=== PATIENT | female | born 1985 | race Two or more races ===

== ENCOUNTER 2016-11-15 10:31 | Emergency (ER) | payer OTHER ==
--- NOTE | 2016-11-15 11:04 | ER Document Report ---
ED Medical Screen (RME) - General Chief Complaint: Drug Abuse Stated Complaint: PSYCH EVAL Notes: 31 yo female with hx/o cocaine abuse. used cocaine this morning around 0630 wants detox. denies SI/HI. + depression. Tried to voluntary commit herself to [facility] yesterday, but due to lack of insurance, couldnt be admitted. Denies any pain. No other health concerns. Pt admits to using heavy for last 4 months. + THC TRAVEL OUTSIDE OF THE [place] IN LAST 30 DAYS: No - Related Data Allergies/Adverse Reactions: No Known Allergies Allergy (Verified 11/15/16 10:46) Past Medical History - Social History Chew tobacco use (# tins/day): No Frequency of alcohol use: None Drug Abuse: Cocaine Past Surgical History: Reports: Hx Tubal Ligation - Immunizations Hx Diphtheria, Pertussis, Tetanus Vaccination: No Physical Exam - Vital signs Vitals: Temp Pulse Resp BP Pulse Ox 98.1 F 104 H 20 116/98 H 97 11/15/16 10:49 11/15/16 10:49 11/15/16 10:49 11/15/16 10:49 11/15/16 10:49 Course - Vital Signs Vital signs: Temp Pulse Resp BP Pulse Ox 98.1 F 104 H 20 116/98 H 97 11/15/16 10:49 11/15/16 10:49 11/15/16 10:49 11/15/16 10:49 11/15/16 10:49
[2016-11-15 11:33] LABS: ABSOLUTE BASOPHILS # (AUTO) 0.1 10^3/uL (0.0-0.2); ABSOLUTE EOSINOPHILS # (AUTO) 0.4 10^3/uL (0.0-0.6); ABSOLUTE LYMPHOCYTES (AUTO) 2.2 10^3/uL (0.5-4.7); ABSOLUTE MONOCYTES (AUTO) 0.9 10^3/uL (0.1-1.4); ABSOLUTE NEUT (AUTO) 5.6 10^3/uL (1.7-8.2); BASOPHILS % (AUTO) 0.9 % (0-2); EOSINOPHILS % (AUTO) 4.4 % (0-6); HEMATOCRIT 43.2 % (36.0-47.0); HEMOGLOBIN 14.8 g/dL (12.0-15.5); HGB HCT DIFFERENCE 1.2; LYMPHOCYTES % (AUTO) 24.1 % (13-45); MEAN CORPUSCULAR HEMOGLOBIN 29.6 pg (27.0-33.4); MEAN CORPUSCULAR HGB CONC 34.3 g/dL (32.0-36.0); MEAN CORPUSCULAR VOLUME 86 fl (80-97); MONOCYTES % (AUTO) 10.2 % (3-13); RED BLOOD COUNT 5.01 10^6/uL (3.72-5.28); RED CELL DISTRIBUTION WIDTH 13.2 % (11.5-14.0); SEGMENTED NEUTROPHILS % (AUTO) 60.4 % (42-78); WHITE BLOOD COUNT 9.3 10^3/uL (4.0-10.5)
[2016-11-15 11:39] LABS: APPEARANCE,URINE SLIGHTLY-CLOUDY; BILIRUBIN,URINE NEGATIVE (NEGATIVE); GLUCOSE, URINE NEGATIVE (NEGATIVE); KETONES,URINE NEGATIVE (NEGATIVE); LEUKOCYTE ESTERASE,URINE NEGATIVE (NEGATIVE); NITRITE,URINE NEGATIVE (NEGATIVE); PROTEIN,URINE NEGATIVE (NEGATIVE); URINE SPECIFIC GRAVITY 1.026
[2016-11-15 11:54] LABS: URINE BARBITURATES SCREEN NEGATIVE; URINE METHADONE SCREEN NEGATIVE; URINE PHENCYCLIDINE SCREEN NEGATIVE
[2016-11-15 11:55] LABS: ALANINE AMINOTRANSFERASE 27 U/L (9-52); ALBUMIN 4.7 g/dL (3.5-5.0); ALKALINE PHOSPHATASE 47 U/L (38-126); ANION GAP 13 (5-19); ASPARTATE AMINO TRANSFERASE 18 U/L (14-36); BLOOD UREA NITROGEN 6 mg/dL (7-20); CARBON DIOXIDE 21 mmol/L (22-30); CHLORIDE 107 mmol/L (98-107); GLUCOSE 94 mg/dL (75-110); SODIUM 141.4 mmol/L (137-145); TOTAL PROTEIN 7.5 g/dL (6.3-8.2)
[2016-11-15 11:56] LABS: ALCOHOL < 10 mg/dL (NONE DETECTED)
--- NOTE | 2016-11-15 12:52 | ER Document Report ---
ED Psych Disorder / Suicide - General Chief Complaint: Drug Abuse Stated Complaint: PSYCH EVAL Time seen by provider: 12:51 Mode of Arrival: Ambulatory Information source: Patient Notes: This is a 31-year-old female with a long history of depression who presents to the emergency room depressed, feelings of suicide. The patient states that her symptoms of been worsened by the use of cocaine and possibly heroin. She started using approximately 4 months ago. TRAVEL OUTSIDE OF THE [place] IN LAST 30 DAYS: No - HPI Patient complains to provider of: No: Aggression, Agitated, Bizarre behavior, Hallucinating, Homicidal ideation, Homicidal plan, Homicidal attempt, Overdose, Suicidal ideation, Suicidal plan, Suicidal attempt, Self injury, Other Onset: Last week Onset was: Gradual Quality of pain: No pain Severity: None Pain Level: Denies Suicide Risk Factors: Depressed Overdose of: No: Acetominophen, Alcohol, Anticholinergic, Anti-depressants, Benzodiazepine, Salicylate, Tricyclic Antidepressant, Other Injury to: No: Generalized, Abdomen, Ankle, Back, Breast, Buttocks, Chest, Elbow , Epigastric, Flank, Face, Finger, Foot, Hand, Head, Hip, Knee, Leg, Lower extremity, Mouth, Neck, Pelvic, Penis, Perineum, Rectum, Shoulder, Testicle, Thigh, Throat, Trunk, Upper extremity, Vagina, Wrist Normal mood: No Associated symptoms: Depressed Similar symptoms previously: Yes Recently seen / treated by doctor: No - Related Data Allergies/Adverse Reactions: No Known Allergies Allergy (Verified 11/15/16 10:46) Past Medical History - General Information source: Patient - Social History Smoking Status: Current Every Day Smoker Cigarette use (# per day): Yes - 1 pack per day Chew tobacco use (# tins/day): No Frequency of alcohol use: None Drug Abuse: Cocaine Lives with: Family Family History: Reviewed & Not Pertinent Patient has suicidal ideation: No Patient has homicidal ideation: No - Medical History Medical History: Negative Past Surgical History: Reports: Hx Tubal Ligation - Immunizations Hx Diphtheria, Pertussis, Tetanus Vaccination: No Review of Systems - Review of Systems Constitutional: No symptoms reported EENT: No symptoms reported Cardiovascular: No symptoms reported Respiratory: No symptoms reported Gastrointestinal: No symptoms reported Genitourinary: No symptoms reported Female Genitourinary: No symptoms reported Musculoskeletal: No symptoms reported Skin: No symptoms reported Hematologic/Lymphatic: No symptoms reported Neurological/Psychological: See HPI Physical Exam - Vital signs Vitals: Temp Pulse Resp BP Pulse Ox 98.1 F 104 H 20 116/98 H 97 11/15/16 10:49 11/15/16 10:49 11/15/16 10:49 11/15/16 10:49 11/15/16 10:49 Notes: Physical exam: GENERAL: 31-year-old female, alert and oriented 3, no acute distress HEAD: Atraumatic, normocephalic. EYES: Pupils equal round and reactive to light, extraocular movements intact, sclera anicteric, conjunctiva are normal. ENT: TMs normal, nares patent, oropharynx clear without exudates. Moist mucous membranes. NECK: Normal range of motion, supple without lymphadenopathy or JVD. LUNGS: Breath sounds clear to auscultation bilaterally and equal. No wheezes rales or rhonchi. HEART: Regular rate and rhythm without murmurs, rubs or gallops. ABDOMEN: Soft, nontender, normoactive bowel sounds. No guarding, no rebound. No masses appreciated. EXTREMITIES: Normal range of motion, no pitting or edema. No clubbing or cyanosis. NEUROLOGICAL: Cranial nerves II through XII grossly intact. Normal speech, normal gait. PSYCH: Depressed, affect blunted SKIN: Warm, Dry, normal turgor, no rashes or lesions noted. Course - Re-evaluation Re-evalutation: 11/15/16 16:10 Patient seen and evaluated by psychiatry. - Vital Signs Vital signs: Temp Pulse Resp BP Pulse Ox 98.7 F 95 16 115/67 99 11/15/16 15:26 11/15/16 15:26 11/15/16 15:26 11/15/16 15:26 11/15/16 15:26 - Laboratory Result Diagrams: 11/15/16 11:10 11/15/16 11:10 Laboratory results interpreted by me: 11/15/16 11/15/16 11:10 11:15 Carbon Dioxide 21 L BUN 6 L Urine Urobilinogen 2.0 H Salicylates < 1.0 L Acetaminophen < 10 L - EKG Interpretation by Ne Rate: Normal Rhythm: NSR - EKG shows normal sinus rhythm with a ventricular rate of 87, no acute ST-T wave changes Discharge - Discharge Clinical Impression: substance abuse Depression Qualifiers: Depression Type: major depressive disorder Condition: Stable Disposition: HOME, SELF-CARE Instructions: Depression (OM) Additional Instructions: Recommendations: Follow-up with the outpatient referrals given. Return to the emergency room for worsening thoughts of depression with or thoughts of wanting to or yourself or any thoughts of losing control.
[2016-11-15] MEDS ORDERED: DIPHENHYDRAMINE HCL 50 MG CAPSULE PO ONE (12:53)
[2016-11-15] MEDS ORDERED: CLONIDINE HCL 0.1 MG TABLET PO ONE (12:53)
[2016-11-15 15:27] VITALS: BP 115/67
--- NOTE | 2016-11-15 16:02 | EKG REPORT ---
SEVERITY:- OTHERWISE NORMAL ECG - SINUS RHYTHM BORDERLINE RIGHT AXIS DEVIATION : Confirmed by: Mirela Penn 15-Nov-2016 16:01:40
--- NOTE | 2016-11-15 17:43 | PSYCHOLOGICAL NOTE ---
Psych Note - Psych Note Psych Note: Patient presented [facility], ED with concerns for substacnce abuse. Patient has a history of cocaine abuse; last use was this morning around 0630. She discloses she wants detox. denies SI/HI. + depression. Tried to voluntary commit herself to [facility] yesterday, but due to lack of insurance, couldnt be admitted. Denies any pain. No other health concerns. Pt admits to using heavy for last 4 months. + THC Patient states that she is currently requesting substance abuse assistance for cocaine abuse. She disclosed her environmental stressors result in poor intimate relationship choices; current boyfriend is a drug dealer. She states that because she is so stressed, when he says he loves her and offers her drugs she says she might as will she do it. She continued to his disclosed that she no longer wants to continue on this path. She states that she does drugs because of her symptoms in an attempt to self medicate. The patient states that she stays up for days at times she can't sleep and has a lot of energy. However there are times where she will sleep all day and all night. She continued to state that she has racing thoughts and high anxiety is unable to keep employed. She continued disclosed that she has no problems finding employment at times just to sit show that she can but then loses interest and will quit. She states these symptoms have been occurring since her teen years. Patient disclosed that she has no problem with female friends and family members and just seems to center around her "choices in men." Patient disclosed 1 previous suicide attempt where she took 17 Zoloft which resulted in her sleeping 2-3 days. She continued disclosed that her neighbor became worried for her when they hadn't seen her came in the home found her. She disclosed that her neighbor was able to wake her after getting her in the tub because at the time she was covered in her own feces. Patient denies family history of mental health. Patient is alert and orientated to person place time and circumstance. Mood is euthymic with congruent affect. Patient denies suicidal and homicidal ideation to this clinician. Patient denies auditory and visual hallucinations; no delusions are noted. Thought process is logical, organized and linear. Conversational speech was within normal rate, tone, prosody. Eye contact was well maintained. Intellectual abilities appear to be within normal range. Attention and concentration are good. Insight, judgment, impulse control appear to be fair. 296.20 (F 32.5) Unspecified Major Depressive Disorder per History R\\0 296.80 (F 31.9) Unspecified Bipolar and Related Disorder Impression\\plan: Patient is psychiatrically cleared for discharge. Patient denies suicidal and homicidal ideation stating she would like outpatient assistance with substance abuse. Patient will be walk-in at [facility] to start the process. Patient came to [facility] ED because she has no insurance and was not sure where she could get services.
== END 2016-11-15 15:30 | disposition home or self-care (01) ==
LOC: ER 10:31
DX: F32.9 Major depressive disorder, single episode, unspecified (principal); F19.10 Other psychoactive substance abuse, uncomplicated; F17.210 Nicotine dependence, cigarettes, uncomplicated
CPT/HCPCS: 36415; 80053; 80307; 81001; 85025; 93005; 93010; 99285

== ENCOUNTER 2017-03-01 22:37 | Emergency (ER) | payer OTHER ==
[2017-03-02] MEDS ORDERED: LIDOCAINE 2% JELLY 5 ML TUBE TOP ONE (02:01)
[2017-03-02] MEDS ORDERED: IBUPROFEN 600 MG TABLET PO ONE (02:53)
--- NOTE | 2017-03-02 02:53 | ER Document Report ---
ED General - General Chief Complaint: Ear Pain Stated Complaint: LEFT EAR PAIN Notes: Patient is a 32-year-old female without past medical history who presents with concerns of left ear pain. States for the past 1 week she has had a constant, dull, throbbing pain to the left ear. States she has a history of wax impaction in the remote past that felt similar. She is not have any constitutional symptoms or fever. She has not seen her primary care doctor regarding today's concerns. Nothing improves or worsens her pain. Denies any hearing loss. TRAVEL OUTSIDE OF THE [place] IN LAST 30 DAYS: No - Related Data Allergies/Adverse Reactions: No Known Allergies Allergy (Verified 11/15/16 10:46) Past Medical History - General Information source: Patient - Social History Smoking Status: Current Every Day Smoker Frequency of alcohol use: None Drug Abuse: None Lives with: Spouse/Significant other Family History: Reviewed & Not Pertinent Renal/ Medical History: Denies: Hx Peritoneal Dialysis Past Surgical History: Reports: Hx Tubal Ligation - Immunizations Hx Diphtheria, Pertussis, Tetanus Vaccination: No Review of Systems - Review of Systems Notes: Constitutional: Negative for fever. HENT: Positive for left ear pain. Eyes: Negative for visual changes. Cardiovascular: Negative for chest pain. Respiratory: Negative for shortness of breath. Gastrointestinal: Negative for abdominal pain, vomiting or diarrhea. Genitourinary: Negative for dysuria. Musculoskeletal: Negative for back pain. Skin: Negative for rash. Neurological: Negative for headaches, weakness or numbness. 10 point ROS negative except as marked above and in HPI. Physical Exam - Vital signs Vitals: Temp Pulse Resp BP Pulse Ox 97.5 F 101 H 18 127/79 H 100 03/01/17 23:29 03/01/17 23:29 03/01/17 23:29 03/01/17 23:29 03/01/17 23:29 Interpretation: Tachycardic Notes: PHYSICAL EXAMINATION: GENERAL: Well-appearing, well-nourished and in no acute distress. HEAD: Atraumatic, normocephalic. EYES: Pupils equal round and reactive to light, extraocular movements intact, sclera anicteric, conjunctiva are normal. ENT: nares patent, oropharynx clear without exudates. Left TM with completely occluded middle ear due to a large, firm wax ball NECK: Normal range of motion, supple without lymphadenopathy LUNGS: Breath sounds clear to auscultation bilaterally and equal. No wheezes rales or rhonchi. HEART: Regular rate and rhythm without murmurs ABDOMEN: Soft, nontender, normoactive bowel sounds. No guarding, no rebound. No masses appreciated. EXTREMITIES: Normal range of motion, no pitting or edema. No cyanosis. NEUROLOGICAL: No focal neurological deficits. Moves all extremities spontaneously and on command. PSYCH: Normal mood, normal affect. SKIN: Warm, Dry, normal turgor, no rashes or lesions noted. Course - Re-evaluation Re-evalutation: 03/02/17 02:49 Patient presents with a large amount of impacted earwax to the left side. On otoscope inspection the middle ear was completely occluded with firm wax. Using a curette, I did attempt to remove this wax ball in its entirety but was unsuccessful. When I would remove individual portions of the wax ball patient actually would have a small amount of bleeding from the wall of the middle ear with the wax was removed. Viscous Lidocaine was instilled the patient continued to have discomfort with attempts at removing the wax ball. Irrigation was performed using a 14-gauge catheter tip but this also was unable to dislodge the wax ball. I have instructed the patient to instill hydrogen peroxide mixed with water into the ear 3 times daily and let it sit until she has had resolution of her discomfort. She has no difficulty with hearing before or after the procedure. Otherwise patient is well in appearance. Her clinical history is not consistent with acute otitis media.At this time will discharge with return precautions and follow-up recommendations. Verbal discharge instructions given a the bedside and opportunity for questions given. Medication warnings reviewed. Patient is in agreement with this plan and has verbalized understanding of return precautions and the need for primary care follow-up in the next 24-72 hours. - Vital Signs Vital signs: Temp Pulse Resp BP Pulse Ox 97.5 F 101 H 18 127/79 H 100 03/01/17 23:29 03/01/17 23:29 03/01/17 23:29 03/01/17 23:29 03/01/17 23:29 Discharge - Discharge Clinical Impression: Impacted ear wax Qualifiers: Laterality: left Qualified Code(s): H61.22 - Impacted cerumen, left ear Condition: Good Disposition: HOME, SELF-CARE Additional Instructions: 3 times daily mix half water and half hydrogen peroxide. Instill approximately 1 mL into the left ear and let it sit for 10-15 minutes. Continue to do this until you feel that the wax is no longer present. Return for any additional concerns including hearing loss, fever greater than 101F, worsening pain to the area, or any other symptoms that are worrisome to you.
[2017-03-02 03:07] VITALS: BP 120/70
== END 2017-03-02 03:05 | disposition home or self-care (01) ==
LOC: ER 22:37
DX: H61.22 Impacted cerumen, left ear (principal); H92.02 Otalgia, left ear; R00.0 Tachycardia, unspecified; F17.200 Nicotine dependence, unspecified, uncomplicated
CPT/HCPCS: 99282

== ENCOUNTER 2017-05-25 04:50 | Emergency (ER) | payer OTHER ==
--- NOTE | 2017-05-25 05:04 | ER Document Report ---
ED General - General Chief Complaint: Pain With Urination Stated Complaint: PAINFUL URINATION Notes: Patient is a 32-year-old female presents with complaint of dysuria. Has been ongoing for 3 days. No fevers. No vomiting. Some urinary frequency. No abnormal vaginal discharge. She is currently on her menstrual period. No other complaints at this time. She does not have a history of frequent UTIs. TRAVEL OUTSIDE OF THE [place] IN LAST 30 DAYS: No - Related Data Allergies/Adverse Reactions: No Known Allergies Allergy (Verified 11/15/16 10:46) Past Medical History - Social History Smoking Status: Unknown if Ever Smoked Frequency of alcohol use: None Drug Abuse: None Family History: Reviewed & Not Pertinent Patient has suicidal ideation: No Patient has homicidal ideation: No Renal/ Medical History: Denies: Hx Peritoneal Dialysis Past Surgical History: Reports: Hx Tubal Ligation - Immunizations Hx Diphtheria, Pertussis, Tetanus Vaccination: No Review of Systems - Review of Systems Notes: My Normal Review Basic REVIEW OF SYSTEMS: CONSTITUTIONAL : Denies fever, chills, or sweats. Denies recent illness. RESPIRATORY: Denies cough, cold, or chest congestion. Denies shortness of breath, difficulty breathing, or wheezing. GASTROINTESTINAL: Denies abdominal pain. Denies nausea, vomiting, or diarrhea. Denies constipation. Last BM: GENITOURINARY: Dysuria and urinary frequency. FEMALE GENITOURINARY: Denies vaginal bleeding, abnormal or irregular periods. LMP: Now MUSCULOSKELETAL: Denies neck or back pain or joint pain or swelling. ALL OTHER SYSTEMS REVIEWED AND NEGATIVE. Physical Exam - Vital signs Vitals: Temp Pulse Resp BP Pulse Ox 98.0 F 97 20 129/88 H 99 05/25/17 04:55 05/25/17 04:55 05/25/17 04:55 05/25/17 04:55 05/25/17 04:55 - Notes Notes: General Appearance: Well nourished, alert, cooperative, no acute distress, no obvious discomfort. Well appearing. Vitals: reviewed, See vital signs table. Lungs: No wheezing, No rales, No rhonci, No accessory muscle use, good air exchange bilaterally. Heart: Normal rate, Regular rythm, No murmur, no rub Abdomen: Normal BS, soft, No rigidity, No reproducible abdominal tenderness to palpation, No guarding, no rebound, no abdominal masses, no organomegaly Extremities: strength 5/5 in all extremities, good pulses in all extremities, no swelling or tenderness in the extremities, no edema. Skin: warm, dry, appropriate color, no rash Neuro: speech clear, oriented x 3, normal affect, responds appropriately to questions. Course - Re-evaluation Re-evalutation: 05/25/17 06:08 Patient's symptoms seem very consistent with UTI. Urinalysis does show positive nitrites but does not show much white blood cells. When I went back to the room to discuss treatment with the patient he then shows me a text from her boyfriend where he said that he was just recently treated for trichomonas and that she should be treated as well. She denies any vaginal discharge. She is currently on her menstrual period. I did speak with the provider who treated her boyfriend. He says that the patient's gonorrhea and chlamydia were negative. He says he treated for trichomonas because of some ongoing discharge. I did talk to the patient did offer to test her for some STDs. She says she prefers just to be treated. I will will not treat her for gonorrhea and chlamydia being that his testing was negative. I will place her on Flagyl for potential trichomonas. I will place her on Keflex for the UTI. I encourage her to return to ER if she is not improving in 3 days or if she has any worsening of her symptoms. Patient agrees with plan and will be discharged home. Dictation of this chart was performed using voice recognition software; therefore, there may be some unintended grammatical errors. - Vital Signs Vital signs: Temp Pulse Resp BP Pulse Ox 98.0 F 97 20 129/88 H 99 05/25/17 04:55 05/25/17 04:55 05/25/17 04:55 05/25/17 04:55 05/25/17 04:55 - Laboratory Laboratory results interpreted by me: 05/25/17 05:29 Urine Blood MODERATE H Urine Nitrite POSITIVE H Discharge - Discharge Clinical Impression: Dysuria Condition: Good Disposition: HOME, SELF-CARE Additional Instructions: Please take the antibiotics as prescribed. Please return to the ER immediately if you develop worsening of your symptoms, fever, pelvic pain, or are not having improvement of your symptoms after 3 days. Please do not drink alcohol when taking the antibiotic or it will make you feel ill. Prescriptions: Cephalexin Monohydrate [Keflex 500 mg Capsule] 500 mg PO BID #14 capsule Metronidazole [Flagyl 500 mg Tablet] 500 mg PO BID #14 tablet Forms: Return to Work
[2017-05-25 05:56] LABS: APPEARANCE,URINE SLIGHTLY-CLOUDY; BILIRUBIN,URINE NEGATIVE (NEGATIVE); GLUCOSE, URINE NEGATIVE (NEGATIVE); KETONES,URINE NEGATIVE (NEGATIVE); LEUKOCYTE ESTERASE,URINE NEGATIVE (NEGATIVE); NITRITE,URINE POSITIVE (NEGATIVE); PROTEIN,URINE NEGATIVE (NEGATIVE); URINE SPECIFIC GRAVITY 1.004; UROBILINOGEN,URINE NEGATIVE mg/dL (<2.0)
[2017-05-25] MEDS ORDERED: CEPHALEXIN 500 MG CAPSULE PO ONE (06:01)
[2017-05-25] MEDS ORDERED: METRONIDAZOLE 500 MG TABLET PO ONE (06:01)
[2017-05-25 06:24] VITALS: BP 112/77
== END 2017-05-25 06:21 | disposition home or self-care (01) ==
LOC: ER 04:50
DX: R30.0 Dysuria (principal); Z87.440 Personal history of urinary (tract) infections; Z98.51 Tubal ligation status
CPT/HCPCS: 81001; 81025; 99283

== ENCOUNTER 2017-05-30 06:28 | Emergency (ER) | payer OTHER ==
[2017-05-30 06:39] VITALS: BP 125/94
== END 2017-05-30 07:10 | disposition left against medical advice (07) ==
LOC: ER 06:28
DX: Z53.9 Procedure and treatment not carried out, unspecified reason (principal)

== ENCOUNTER 2017-05-30 23:35 | Emergency (ER) | payer OTHER ==
--- NOTE | 2017-05-31 00:52 | ER Document Report ---
ED GI/ - General Chief Complaint: Vaginal Discharge Stated Complaint: URINARY PROBLEM Time Seen by Provider: 05/31/17 00:09 Mode of Arrival: Ambulatory Information source: Patient Notes: Female presents to ED for complaint of vaginal discharge pain with urination and does not think she is urinating from the right spot. She has a chunky vaginal discharge TRAVEL OUTSIDE OF THE [place] IN LAST 30 DAYS: No - HPI Patient complains to provider of: Vaginal discharge, Other - "Urinating from the wrong place" Onset: Other - couple days Pain Level: Denies Vaginal bleeding (Compared to normal period): None Associated symptoms: Vaginal discharge Exacerbated by: Denies Relieved by: Denies Similar symptoms previously: Yes Recently seen / treated by doctor: Yes - Related Data Allergies/Adverse Reactions: No Known Allergies Allergy (Verified 11/15/16 10:46) Past Medical History - General Information source: Patient - Social History Smoking Status: Current Every Day Smoker Cigarette use (# per day): Yes - 1/2 ppd Chew tobacco use (# tins/day): No Smoking Education Provided: Yes - less than 2 min Frequency of alcohol use: None Drug Abuse: None Lives with: Spouse/Significant other Family History: DM, Hyperlipidemia, Hypertension. denies: Arthritis, CAD, COPD , CVA, Malignancy, Thyroid Disfunction Patient has suicidal ideation: No Patient has homicidal ideation: No - Past Medical History Cardiac Medical History: Reports: None Pulmonary Medical History: Reports: None EENT Medical History: Reports: None Neurological Medical History: Reports: None Endocrine Medical History: Reports: None Renal/ Medical History: Reports: Hx Pelvic Inflammatory Disease Malignancy Medical History: Reports: None GI Medical History: Reports: None Musculoskeltal Medical History: Reports None Skin Medical History: Reports None Psychiatric Medical History: Reports: None Traumatic Medical History: Reports: None Infectious Medical History: Reports: None Past Surgical History: Reports: Hx Tubal Ligation - Immunizations Hx Diphtheria, Pertussis, Tetanus Vaccination: No Review of Systems - Review of Systems Constitutional: No symptoms reported EENT: No symptoms reported Cardiovascular: No symptoms reported Respiratory: No symptoms reported Gastrointestinal: No symptoms reported Genitourinary: No symptoms reported Female Genitourinary: Vaginal discharge Musculoskeletal: No symptoms reported Skin: No symptoms reported Hematologic/Lymphatic: No symptoms reported Neurological/Psychological: No symptoms reported -: Yes All other systems reviewed and negative Physical Exam - Vital signs Vitals: Temp Pulse Resp BP Pulse Ox 97.4 F 111 H 18 125/82 99 05/30/17 23:44 05/30/17 23:44 05/30/17 23:44 05/30/17 23:44 05/30/17 23:44 Interpretation: Normal - General General appearance: Appears well, Alert - HEENT Head: Normocephalic, Atraumatic Eyes: Normal Pupils: PERRL - Respiratory Respiratory status: No respiratory distress Chest status: Nontender Breath sounds: Normal Chest palpation: Normal - Cardiovascular Rhythm: Regular Heart sounds: Normal auscultation Murmur: No - Abdominal Inspection: Normal Distension: No distension Bowel sounds: Normal Tenderness: Nontender Organomegaly: No organomegaly - Genitourinary External exam: Normal Speculum exam: Vaginal discharge Vaginal bleeding: None Bimanuel exam: Cervical motion tender - Back Back: Normal, Nontender - Extremities General upper extremity: Normal inspection, Nontender, Normal color, Normal ROM , Normal temperature General lower extremity: Normal inspection, Nontender, Normal color, Normal ROM , Normal temperature, Normal weight bearing. No: Angelika's sign - Neurological Neuro grossly intact: Yes Cognition: Normal Orientation: AAOx4 [place] Coma Scale Eye Opening: Spontaneous [place] Coma Scale Verbal: Oriented Kings[place] Coma Scale Motor: Obeys Commands Kings[place] Coma Scale Total: 15 Speech: Normal Motor strength normal: LUE, RUE, LLE, RLE Sensory: Normal - Psychological Associated symptoms: Normal affect, Normal mood - Skin Skin Temperature: Warm Skin Moisture: Dry Skin Color: Normal Course - Re-evaluation Re-evalutation: 05/31/17 01:51 Treated with Macrobid, azithromycin, Rocephin and discharged home. Patient will call later for the results of her test. - Vital Signs Vital signs: Temp Pulse Resp BP Pulse Ox 98.6 F 96 17 116/77 100 05/31/17 01:47 05/31/17 01:47 05/31/17 01:47 05/31/17 01:47 05/31/17 01:47 - Laboratory Laboratory results interpreted by me: 05/31/17 00:44 Urine Ketones TRACE H Urine Nitrite POSITIVE H Ur Leukocyte Esterase TRACE H Discharge - Discharge Clinical Impression: Vaginitis Qualifiers: Chronicity: acute Qualified Code(s): N76.0 - Acute vaginitis UTI (urinary tract infection) Qualifiers: Urinary tract infection type: site unspecified Hematuria presence: without hematuria Qualified Code(s): N39.0 - Urinary tract infection, site not specified Condition: Stable Disposition: HOME, SELF-CARE Instructions: Family Physicians / Practices Additional Instructions: PELVIC PAIN: There are many causes of pain in the pelvic area. The cause could be the tubes, ovaries, uterus, intestines, appendix, pelvic muscles and connective tissue, or the urinary tract. The cause of your pelvic pain is not clear. However, it seems safe to treat you outside the hospital. If the pain sounds like a temporary problem, we sometimes wait to see if it goes away. Other patients may need additional tests, such as pelvic ultrasound or cultures. Conditions may change. Call us or come back for reexamination if any problems occur, such as: (1) Pain that becomes more severe, steady, or becomes concentrated in one specific area. Also, pain that is more severe with movement or coughing. (2) Vomiting that persists or becomes more frequent. (3) Blood in the vomitus, urine, or bowel movements. Blood in the stool may have a tarry or black appearance. (4) Shaking chills or fever greater than 100 degrees. (5) The abdomen becomes more distended or swollen. (6) Bowel movements cease. (7) Heavy vaginal bleeding. URINARY TRACT INFECTION: Your evaluation indicates that you have a urinary tract infection. This is due to germs growing in the bladder. This is a common problem. This infection usually responds quickly to antibiotics. Your antibiotic should be taken exactly as prescribed. Drink plenty of fluids -- three to four quarts a day. Occasionally, a bladder anesthetic will be prescribed to help stop the feeling of urgency until the antibiotic has a chance to clear the infection. This may cause your urine to be dark orange. Certain urine infections require a culture. If the doctor obtained a culture, the results will be back in two days. You should call to see if a change in treatment is needed. A repeat urinalysis after you finish treatment is often recommended. The physician will let you know if further testing is required. Call the doctor if you develop fever, chills, flank pain, inability to urinate, or blood in the urine. NITROFURANTOIN (MACRODANTIN, MACROBID): You have received a prescription for nitrofurantoin (Macrodantin). This antibiotic is used for urinary tract infections. Women who are or nursing should notify the physician before taking this medicine. If you have ever had a problem caused by this medication in the past, be sure the physician is aware of it. Common side effects of this medicine include nausea, vomiting, or decreased appetite. Notify your physician if these side effects become severe. Immediately stop this medicine and call the physician if you develop cough , shortness of breath, chest pain, weakness, jaundice (yellow color of the skin and whites of the eyes), or a skin rash. AZITHROMYCIN: Azithromycin (Zithromax) is a broad spectrum antibiotic in the same class as erythromycin. It can treat a variety of bacterial infections, but is most frequently used for respiratory infections. Azithromycin is extremely long-lasting. It accumulates in body tissues and continues to kill bacteria for many days. In order to improve absorption, Azithromycin should be taken at least one hour before or two hours after a meal. It does not have the same strong tendency to upset the stomach as erythromycin and is usually very well tolerated. Patients who have had a rash or other true allergic reactions to erythromycin should not take this medication. Call if you develop gastrointestinal distress, severe diarrhea, rash, hives, itching, or shortness of breath. FOLLOW-UP CARE: If you have been referred to a physician for follow-up care, call the physician s office for an appointment as you were instructed or within the next two days. If you experience worsening or a significant change in your symptoms, notify the physician immediately or return to the Emergency Department at any time for re-evaluation. Prescriptions: Nitrofurantoin/Nitrofuran Mac [Macrobid 100 mg Capsule] 1 tab PO BID #14 capsule Forms: Smoking Cessation Education
[2017-05-31 01:10] LABS: APPEARANCE,URINE SLIGHTLY-CLOUDY; BILIRUBIN,URINE NEGATIVE (NEGATIVE); CALCIUM OXALATE CRYSTALS,URINE MODERATE /HPF; GLUCOSE, URINE NEGATIVE (NEGATIVE); KETONES,URINE TRACE mg/dL (NEGATIVE); LEUKOCYTE ESTERASE,URINE TRACE (NEGATIVE); NITRITE,URINE POSITIVE (NEGATIVE); PROTEIN,URINE NEGATIVE (NEGATIVE); URINE SPECIFIC GRAVITY 1.025; UROBILINOGEN,URINE NEGATIVE mg/dL (<2.0)
[2017-05-31] MEDS ORDERED: CEFTRIAXONE INJ 250 MG VIAL IM ONE (01:18)
[2017-05-31] MEDS ORDERED: LIDOCAINE 1% INJ-PF (10 MG/ML) 30 ML SDV INJ ONE (01:18)
[2017-05-31] MEDS ORDERED: NITROFURANTOIN MONOHYD/M-CRYST 100 MG CAPSULE PO ONE (01:18)
[2017-05-31] MEDS ORDERED: AZITHROMYCIN 250 MG TABLET PO ONE (01:18)
[2017-05-31 01:47] VITALS: BP 116/77
[2017-05-31 02:31] LABS: URINE BARBITURATES SCREEN NEGATIVE; URINE METHADONE SCREEN NEGATIVE; URINE OPIATES LOW NEGATIVE; URINE PHENCYCLIDINE SCREEN NEGATIVE
[2017-05-31 02:35] LABS: CHLAM PCR NOT DETECTED (NOT DETECT)
== END 2017-05-31 01:48 | disposition home or self-care (01) ==
LOC: ER 23:35
DX: N76.0 Acute vaginitis (principal); N39.0 Urinary tract infection, site not specified; R39.198 Other difficulties with micturition; R30.9 Painful micturition, unspecified; N89.8 Other specified noninflammatory disorders of vagina; F17.210 Nicotine dependence, cigarettes, uncomplicated
CPT/HCPCS: 99283; 96372; 87086; 87210; 87088; 81001; 87186; 80307; 87491; 87591; J3490; J0696; J8499

== ENCOUNTER 2017-05-31 21:53 | Emergency (ER) | payer OTHER | END 2017-05-31 22:05 | disposition left against medical advice (07) | LOC: ER 21:53 | DX: Z53.21 Procedure and treatment not carried out due to patient leaving prior to being seen by health care provider (principal) ==

== ENCOUNTER 2017-06-02 22:07 | Emergency (ER) | payer OTHER | END 2017-06-03 02:26 | disposition left against medical advice (07) | LOC: ER 22:07 | DX: Z53.21 Procedure and treatment not carried out due to patient leaving prior to being seen by health care provider (principal) ==

== ENCOUNTER 2017-06-13 06:29 | Emergency (ER) | payer OTHER ==
[2017-06-13 06:40] VITALS: BP 140/87
== END 2017-06-13 07:08 | disposition left against medical advice (07) ==
LOC: ER 06:29
DX: Z53.21 Procedure and treatment not carried out due to patient leaving prior to being seen by health care provider (principal)

== ENCOUNTER 2017-06-29 00:36 | Emergency (ER) | payer OTHER ==
[2017-06-29 01:13] VITALS: BP 129/90
[2017-06-29 02:52] LABS: APPEARANCE,URINE SLIGHTLY-CLOUDY; BILIRUBIN,URINE NEGATIVE (NEGATIVE); GLUCOSE, URINE NEGATIVE (NEGATIVE); KETONES,URINE NEGATIVE (NEGATIVE); LEUKOCYTE ESTERASE,URINE LARGE (NEGATIVE); NITRITE,URINE NEGATIVE (NEGATIVE); PROTEIN,URINE NEGATIVE (NEGATIVE); URINE SPECIFIC GRAVITY 1.012; UROBILINOGEN,URINE NEGATIVE mg/dL (<2.0)
== END 2017-06-29 06:35 | disposition left against medical advice (07) ==
LOC: ER 00:36
DX: Z53.9 Procedure and treatment not carried out, unspecified reason (principal); R39.198 Other difficulties with micturition
CPT/HCPCS: 81001

== ENCOUNTER 2017-06-30 14:00 | Emergency (ER) | payer OTHER ==
[2017-06-30 14:05] VITALS: BP 124/83
--- NOTE | 2017-06-30 14:29 | ER Document Report ---
ED GI/ - General Chief Complaint: Urinary Problem Stated Complaint: URINARY PROBLEM Time Seen by Provider: 06/30/17 14:21 Mode of Arrival: Ambulatory Information source: Patient Notes: Patient presents complaining of right flank pain for the past 6 days. Patient denies any nausea, vomiting, or diarrhea. Patient denies any vaginal bleeding or discharge. Patient denies any fever. Patient states that she was treated for UTI 1 month ago but denies any current urinary tract symptoms. TRAVEL OUTSIDE OF THE [place] IN LAST 30 DAYS: No - HPI Patient complains to provider of: Flank pain. No: Abdominal pain, Diarrhea, Dysuria, Vaginal bleeding, Vaginal discharge Onset: Other - 6 days Timing/Duration: Persistent Quality of pain: Achy Pain Level: 4 Location: Right flank Vaginal bleeding (Compared to normal period): None Associated symptoms: denies: Diarrhea, Dysuria, Fever, Loss of appetite, Nausea , Urinary hesitancy, Urinary frequency, Urinary retention, Urinary urgency, Vaginal discharge, Vomiting Exacerbated by: Denies Relieved by: Denies Similar symptoms previously: No Recently seen / treated by doctor: No - Related Data Allergies/Adverse Reactions: No Known Allergies Allergy (Verified 06/30/17 14:17) Past Medical History - General Information source: Patient - Social History Smoking Status: Current Every Day Smoker Chew tobacco use (# tins/day): No Frequency of alcohol use: None Drug Abuse: Cocaine Occupation: None Family History: DM, Hyperlipidemia, Hypertension. denies: Arthritis, CAD, COPD , CVA, Malignancy, Thyroid Disfunction - Medical History Medical History: Negative Renal/ Medical History: Reports: Hx Pelvic Inflammatory Disease. Denies: Hx Peritoneal Dialysis Past Surgical History: Reports: Hx Tubal Ligation - Immunizations Hx Diphtheria, Pertussis, Tetanus Vaccination: No Review of Systems - Review of Systems Constitutional: No symptoms reported. denies: Fever, Recent illness EENT: No symptoms reported Cardiovascular: No symptoms reported Respiratory: No symptoms reported. denies: Cough, Short of breath Gastrointestinal: No symptoms reported. denies: Abdominal pain, Diarrhea, Nausea, Vomiting Genitourinary: Flank pain. denies: Dysuria Female Genitourinary: No symptoms reported Musculoskeletal: Back pain Skin: No symptoms reported Hematologic/Lymphatic: No symptoms reported Neurological/Psychological: No symptoms reported Physical Exam - Vital signs Vitals: Temp Pulse Resp BP Pulse Ox 98.3 F 105 H 16 124/83 96 06/30/17 14:01 06/30/17 14:01 06/30/17 14:01 06/30/17 14:01 06/30/17 14:01 - General General appearance: Appears well, Alert In distress: None - HEENT Head: Normocephalic, Atraumatic Eyes: Normal Nasal: Normal Mouth/Lips: Normal Neck: Normal - Respiratory Respiratory status: No respiratory distress Chest status: Nontender Breath sounds: Normal. No: Rales, Rhonchi, Stridor, Wheezing Chest palpation: Normal - Cardiovascular Rhythm: Regular Heart sounds: S1 appreciated, S2 appreciated Murmur: No - Back Back: CVA tenderness - right - Extremities General upper extremity: Normal inspection, Normal ROM General lower extremity: Normal inspection, Normal ROM - Neurological Neuro grossly intact: Yes Cognition: Normal [place] Coma Scale Eye Opening: Spontaneous Kingsley Coma Scale Verbal: Oriented [place] Coma Scale Motor: Obeys Commands [place] Coma Scale Total: 15 - Skin Skin Temperature: Warm Skin Moisture: Dry Skin Color: Normal Course - Re-evaluation Re-evalutation: 06/30/17 15:16 RN states that patient did not want to go to room 41 as she felt that this was in the psychiatric department of the emergency department. Patient advised by the RN that this was part of pod 5, and that she was not being evaluated for any psychiatric complaint at this time. Patient states that she is leaving, patient observed to ambulate out of the department - Vital Signs Vital signs: Temp Pulse Resp BP Pulse Ox 98.3 F 105 H 16 124/83 96 06/30/17 14:01 06/30/17 14:01 06/30/17 14:01 06/30/17 14:01 06/30/17 14:01 Discharge - Discharge Clinical Impression: Flank pain Disposition: [facility] [place]
[2017-06-30 15:07] LABS: APPEARANCE,URINE SLIGHTLY-CLOUDY; BILIRUBIN,URINE NEGATIVE (NEGATIVE); GLUCOSE, URINE NEGATIVE (NEGATIVE); KETONES,URINE NEGATIVE (NEGATIVE); LEUKOCYTE ESTERASE,URINE NEGATIVE (NEGATIVE); NITRITE,URINE NEGATIVE (NEGATIVE); PROTEIN,URINE NEGATIVE (NEGATIVE); URINE SPECIFIC GRAVITY 1.005; UROBILINOGEN,URINE NEGATIVE mg/dL (<2.0)
[2017-06-30 15:23] LABS: URINE BARBITURATES SCREEN NEGATIVE; URINE METHADONE SCREEN NEGATIVE; URINE OPIATES LOW NEGATIVE; URINE PHENCYCLIDINE SCREEN NEGATIVE
== END 2017-06-30 15:13 | disposition left against medical advice (07) ==
LOC: EEVIPCON 14:00 → ER 14:00
DX: R10.9 Unspecified abdominal pain (principal); Z87.440 Personal history of urinary (tract) infections; F17.200 Nicotine dependence, unspecified, uncomplicated
CPT/HCPCS: 80307; 81001; 87086; 99281

== ENCOUNTER 2017-07-23 03:04 | Emergency (ER) | payer SELFPAY ==
[2017-07-23] MEDS ORDERED: DEXAMETHASONE 4 MG TABLET PO ONE (03:30)
--- NOTE | 2017-07-23 03:47 | ER Document Report ---
ED ENT - General Chief Complaint: Sore Throat Stated Complaint: ABDOMINAL PAIN,SORE THROAT Time Seen by Provider: 07/23/17 03:21 Notes: The patient is a 32-year-old female, past medical history GERD, gastric ulcer, chronic cocaine abuse, current smoker, presents with 5 months of left ear pain, 4 days of sore throat and pain when she swallows and epigastric pain. Patient denies drooling, fevers, shortness of breath, stridor, rash, nausea, vomiting, urinary symptoms or flank pain. TRAVEL OUTSIDE OF THE [place] IN LAST 30 DAYS: No - Related Data Allergies/Adverse Reactions: No Known Allergies Allergy (Verified 07/23/17 03:13) Past Medical History - General Information source: Patient - Social History Smoking Status: Current Every Day Smoker Drug Abuse: Cocaine Family History: DM, Hyperlipidemia, Hypertension. denies: Arthritis, CAD, COPD , CVA, Malignancy, Thyroid Disfunction Patient has suicidal ideation: No Patient has homicidal ideation: No Renal/ Medical History: Reports: Hx Pelvic Inflammatory Disease. Denies: Hx Peritoneal Dialysis Past Surgical History: Reports: Hx Tubal Ligation - Immunizations Hx Diphtheria, Pertussis, Tetanus Vaccination: No Review of Systems - Review of Systems Notes: REVIEW OF SYSTEMS: CONSTITUTIONAL: -fevers, -chills EENT: +sore throat, +left ear pain, -eye pain, -difficulty swallowing, -nasal congestion CARDIOVASCULAR:-chest pain, -syncope. RESPIRATORY: -cough, -SOB GASTROINTESTINAL: +epigastric abdominal pain, - nausea, -vomiting, -diarrhea GENITOURINARY: -dysuria, -hematuria MUSCULOSKELETAL: -back pain, -neck pain SKIN: -rash or skin lesions. HEMATOLOGIC: -easy bruising or bleeding. LYMPHATIC: -swollen, enlarged glands. NEUROLOGICAL: -altered mental status or loss of consciousness, -headache, - neurologic symptoms PSYCHIATRIC: -anxiety, -depression. ALL OTHER SYSTEMS REVIEWED AND NEGATIVE. Physical Exam - Vital signs Vitals: Temp Pulse Resp BP Pulse Ox 97.9 F 120 H 20 138/92 H 97 07/23/17 03:13 07/23/17 03:13 07/23/17 03:13 07/23/17 03:13 07/23/17 03:13 - Notes Notes: PHYSICAL EXAMINATION: GENERAL: Well-appearing, well-nourished and in no acute distress. HEAD: Atraumatic, normocephalic. EYES: Pupils equal round and reactive to light, extraocular movements intact, sclera anicteric, conjunctiva are normal. ENT: Left TM dull. nares patent, mild erythema of oropharynx without exudates. Moist mucous membranes. NECK: Normal range of motion, supple without lymphadenopathy LUNGS: Breath sounds clear to auscultation bilaterally and equal. No wheezes rales or rhonchi. HEART: Tachycardia ABDOMEN: Soft, nontender, normoactive bowel sounds. No guarding, no rebound. No masses appreciated. EXTREMITIES: Normal range of motion, no pitting or edema. No cyanosis. NEUROLOGICAL: Cranial nerves grossly intact. Normal speech, normal gait. Normal sensory and motor exams. PSYCH: Normal mood, normal affect. SKIN: Warm, Dry, normal turgor, no rashes or lesions noted. Course - Re-evaluation Re-evalutation: Patient appears very well. Looking through old records, patient is frequently tachycardic. Her heart rate decreased to 110 while in the ER. Her urine drug screens are always positive for cocaine, so suspect that her tachycardia is most likely from her cocaine abuse and less likely from an emergent condition. She has no signs of strep pharyngitis or otitis media. Her ear pain is ongoing for the past 5 months and instructed her to follow-up with ENT for further evaluation and treatment. Her epigastric pain is associated with her known gastric ulcer. Will discharge patient home with return precautions. - Vital Signs Vital signs: Temp Pulse Resp BP Pulse Ox 97.9 F 120 H 20 138/92 H 97 07/23/17 03:13 07/23/17 03:13 07/23/17 03:13 07/23/17 03:13 07/23/17 03:13 - Laboratory Laboratory results interpreted by oh: 07/23/17 03:45 Urine Ketones TRACE H Urine Urobilinogen 2.0 H Discharge - Discharge Clinical Impression: Ear pain, left, Epigastric abdominal pain Pharyngitis Qualifiers: Pharyngitis/tonsillitis etiology: unspecified etiology Qualified Code(s): J02.9 - Acute pharyngitis, unspecified Condition: Stable Disposition: HOME, SELF-CARE Additional Instructions: Follow-up with the ear doctor since you are having pain for 5 months. SORE THROAT: Sore throats may be caused by viruses, bacteria, or fungi. Most are due to a virus, and must get better on their own. Bacterial sore throats, particularly those due to "strep," need treatment with antibiotics. If an antibiotic is prescribed, be sure to take the medication for a full 10 days. Failure to take the antibiotic can result in complications such as rheumatic fever. Sometimes, an injection of antibiotics is given instead of pills or liquid. This single "shot" is equal in effectiveness to the oral medication. To relieve symptoms, take acetaminophen for pain. Sip clear liquids frequently, or eat popsicles or ice chips. Anesthetic sprays or lozenges may help. Make sure the air in the room is not too dry. Avoid using decongestants or antihistamines. Call the doctor if there is no improvement in two days, or if you have difficulty breathing, increasing throat pain, high fever, rash, or frequent vomiting. STEROID MEDICATION: You have been given a medicine of the cortisone/steroid class. This medication is used to control inflammation or allergy. It is usually only given for a short period of time, until the acute process subsides. There are usually no side effects from short-term use of cortisone-like medications. Some persons feel an increased sense of well-being and are not sleepy at bedtime. Long-term use of cortisone medications is best avoided, unless required for a severe condition. If your condition does not remit, or relapses after the course of corticosteroid medication, you should consult your physician. FOLLOW-UP CARE: If you have been referred to a physician for follow-up care, call the physician s office for an appointment as you were instructed or within the next two days. If you experience worsening or a significant change in your symptoms, notify the physician immediately or return to the Emergency Department at any time for re-evaluation. Referrals: LAWRENCE PEDRAZA MD [ACTIVE STAFF] - Follow up as needed
[2017-07-23 03:59] LABS: APPEARANCE,URINE SLIGHTLY-CLOUDY; BILIRUBIN,URINE NEGATIVE (NEGATIVE); GLUCOSE, URINE NEGATIVE (NEGATIVE); KETONES,URINE TRACE mg/dL (NEGATIVE); LEUKOCYTE ESTERASE,URINE NEGATIVE (NEGATIVE); NITRITE,URINE NEGATIVE (NEGATIVE); PROTEIN,URINE NEGATIVE (NEGATIVE); URINE SPECIFIC GRAVITY 1.019
[2017-07-23 04:13] VITALS: BP 137/93
== END 2017-07-23 04:32 | disposition home or self-care (01) ==
LOC: EEVIPCON 03:04 → ER 03:04
DX: J02.9 Acute pharyngitis, unspecified (principal); H92.09 Otalgia, unspecified ear; R10.13 Epigastric pain; R10.9 Unspecified abdominal pain; K21.9 Gastro-esophageal reflux disease without esophagitis; F14.10 Cocaine abuse, uncomplicated; F17.200 Nicotine dependence, unspecified, uncomplicated
CPT/HCPCS: 81001; 81025; 99283

== ENCOUNTER 2017-07-25 09:24 | Emergency (ER) | payer OTHER ==
--- NOTE | 2017-07-25 09:46 | ER Document Report ---
ED Medical Screen (RME) - General Chief Complaint: Suicidal Ideation Stated Complaint: SUICIDAL IDEATION Time Seen by Provider: 07/25/17 09:43 Mode of Arrival: Ambulatory Information source: Patient TRAVEL OUTSIDE OF THE [place] IN LAST 30 DAYS: No - HPI Patient complains to provider of: depression/SI Onset: Other - Pt states she has been very depressed lately and has had thoughts of hurting herself. She is seeking help today - Related Data Allergies/Adverse Reactions: No Known Allergies Allergy (Verified 07/23/17 03:13) Past Medical History Renal/ Medical History: Reports: Hx Pelvic Inflammatory Disease. Denies: Hx Peritoneal Dialysis Past Surgical History: Reports: Hx Tubal Ligation - Immunizations Hx Diphtheria, Pertussis, Tetanus Vaccination: No Physical Exam - Vital signs Vitals: Temp Pulse Resp BP Pulse Ox 98.7 F 126 H 16 140/87 H 96 07/25/17 09:35 07/25/17 09:35 07/25/17 09:35 07/25/17 09:35 07/25/17 09:35 Course - Vital Signs Vital signs: Temp Pulse Resp BP Pulse Ox 98.7 F 126 H 16 140/87 H 96 07/25/17 09:35 07/25/17 09:35 07/25/17 09:35 07/25/17 09:35 07/25/17 09:35
[2017-07-25 10:21] LABS: ABSOLUTE EOSINOPHILS # (AUTO) 0.1 10^3/uL (0.0-0.6); ABSOLUTE MONOCYTES (AUTO) 1.1 10^3/uL (0.1-1.4); ABSOLUTE NEUT (AUTO) 13.5 10^3/uL (1.7-8.2); BASOPHILS % (AUTO) 0.2 % (0-2); EOSINOPHILS % (AUTO) 0.8 % (0-6); HEMATOCRIT 43.8 % (36.0-47.0); HEMOGLOBIN 14.7 g/dL (12.0-15.5); HGB HCT DIFFERENCE 0.3; MEAN CORPUSCULAR HEMOGLOBIN 29.8 pg (27.0-33.4); MEAN CORPUSCULAR HGB CONC 33.6 g/dL (32.0-36.0); MEAN CORPUSCULAR VOLUME 89 fl (80-97); MONOCYTES % (AUTO) 7.2 % (3-13); RED BLOOD COUNT 4.95 10^6/uL (3.72-5.28); SEGMENTED NEUTROPHILS % (AUTO) 85.8 % (42-78); WHITE BLOOD COUNT 15.8 10^3/uL (4.0-10.5)
[2017-07-25 10:22] LABS: APPEARANCE,URINE SLIGHTLY-CLOUDY; BILIRUBIN,URINE NEGATIVE (NEGATIVE); GLUCOSE, URINE NEGATIVE (NEGATIVE); KETONES,URINE TRACE mg/dL (NEGATIVE); LEUKOCYTE ESTERASE,URINE NEGATIVE (NEGATIVE); NITRITE,URINE NEGATIVE (NEGATIVE); PROTEIN,URINE 30 mg/dL (NEGATIVE); URINE SPECIFIC GRAVITY 1.029
--- NOTE | 2017-07-25 10:22 | ER Document Report ---
ED Psych Disorder / Suicide - General Mode of Arrival: Ambulatory TRAVEL OUTSIDE OF THE [place] IN LAST 30 DAYS: No - HPI Patient complains to provider of: Suicidal ideation <CAT GAMBLE - Last Filed: 07/25/17 10:17> <JEFF VIGIL - Last Filed: 07/25/17 13:59> <LUIS KC - Last Filed: 07/25/17 14:18> - General Chief Complaint: Suicidal Ideation Stated Complaint: Suicidal Ideation Time Seen by Provider: 07/25/17 09:43 Notes: Patient is a 32 year old female who presents to the ED with complaints of suicidal ideations with onset today. She denies any triggering events. She has had suicidal ideations in the past but never to this extent. She has been admitted back in November of 2016 but never followed up with any counselors since then. (CAT GAMBLE) - Related Data Allergies/Adverse Reactions: No Known Allergies Allergy (Verified 07/23/17 03:13) Home Medications: Current Home Medications No Home Medications 07/25/17 [History] Past Medical History - General Information source: Patient - Social History Smoking Status: Current Every Day Smoker Cigarette use (# per day): Yes - 2 packs Frequency of alcohol use: None Drug Abuse: Cocaine Family History: DM, Hyperlipidemia, Hypertension Patient has suicidal ideation: Yes Renal/ Medical History: Reports: Hx Pelvic Inflammatory Disease. Denies: Hx Peritoneal Dialysis Past Surgical History: Reports: Hx Tubal Ligation - Immunizations Hx Diphtheria, Pertussis, Tetanus Vaccination: No <CAT GAMBLE - Last Filed: 07/25/17 10:17> Review of Systems - Review of Systems Constitutional: No symptoms reported EENT: No symptoms reported Cardiovascular: No symptoms reported Respiratory: No symptoms reported Gastrointestinal: No symptoms reported Genitourinary: No symptoms reported Female Genitourinary: No symptoms reported Musculoskeletal: No symptoms reported Skin: No symptoms reported Hematologic/Lymphatic: No symptoms reported Neurological/Psychological: See HPI, Suicidal ideation <CAT GAMBLE - Last Filed: 07/25/17 10:17> Physical Exam - General General appearance: Alert, Other - smells of tobacco - HEENT Head: Normocephalic, Atraumatic Eyes: Normal Extraocular movements intact: Yes Pupils: PERRL - Respiratory Respiratory status: No respiratory distress Breath sounds: Normal - Cardiovascular Rhythm: Regular Heart sounds: Normal auscultation Murmur: No - Abdominal Inspection: Normal - Extremities General upper extremity: Normal inspection, Normal ROM General lower extremity: Normal inspection, Normal ROM - Neurological Neuro grossly intact: Yes - Psychological Associated symptoms: Depressed, Other - avoids questions, doesnt volunteer answers - Skin Skin Temperature: Warm Skin Moisture: Dry Skin Color: Normal <CAT GAMBLE - Last Filed: 07/25/17 10:17> - Vital signs Vitals: Temp Pulse Resp BP Pulse Ox 98.7 F 126 H 16 140/87 H 96 07/25/17 09:35 07/25/17 09:35 07/25/17 09:35 07/25/17 09:35 07/25/17 09:35 Course - Laboratory Result Diagrams: 07/25/17 09:49 07/25/17 09:49 <CAT GAMBLE - Last Filed: 07/25/17 10:17> - Laboratory Result Diagrams: 07/25/17 09:49 07/25/17 09:49 <JEFF VIGIL - Last Filed: 07/25/17 13:59> - Laboratory Result Diagrams: 07/25/17 09:49 07/25/17 09:49 - EKG Interpretation by [facility] EKG shows normal: Sinus rhythm, Intervals, QRS Complexes, ST-T Waves. abnormal : [place] - Borderline RAD Rate: Tachycardia - 110 Rhythm: NSR P Waves: ILYA, LAE <LUIS KC - Last Filed: 07/25/17 14:18> - Vital Signs Vital signs: Temp Pulse Resp BP Pulse Ox 98.2 F 75 16 114/71 97 07/25/17 12:01 07/25/17 12:01 07/25/17 12:01 07/25/17 12:01 07/25/17 12:01 - Laboratory Laboratory results interpreted by wi: 07/25/17 07/25/17 07/25/17 09:49 09:49 09:49 WBC 15.8 H Seg Neutrophils % 85.8 H Lymphocytes % 6.0 L Absolute Neutrophils 13.5 H Glucose 130 H Urine Protein 30 H Urine Ketones TRACE H Urine Urobilinogen 2.0 H Discharge <CAT GAMBLE - Last Filed: 07/25/17 10:17> <JEFF VIGIL - Last Filed: 07/25/17 13:59> <YAMINILUIS - Last Filed: 07/25/17 14:18> - Discharge Clinical Impression: Suicidal ideation, Cocaine abuse Depression Qualifiers: Depression Type: unspecified Qualified Code(s): F32.9 - Major depressive disorder, single episode, unspecified Condition: Stable Disposition: HOME, SELF-CARE Additional Instructions: DEPRESSION: Your evaluation reveals that you have mental depression. While symptoms may be vague, they often include disturbance of sleep, fatigue, loss of appetite , and general loss of interest in life. While depression may be a side effect of drugs, or a reaction to a major change in your life, many cases have no known cause. If depression is acute, and related to a major loss in your life, you can expect it to clear completely with time. If you have been depressed a long time , are prone to repeated bouts of depression or low mood, or have been thinking of suicide, get help. Depression can be treated with anti-depressant medication and counselling. Long-term depression will often take a few weeks to clear, even with appropriate medication. Follow-up care is important. SUICIDAL IDEATION: Suicidal ideation is a common medical term for thoughts about suicide, which may be as detailed as a formulated plan, without the suicidal act itself. Although most people who undergo suicidal ideation do not commit suicide, some go on to make suicide attempts. The range of suicidal ideation varies greatly from fleeting to detailed planning, role playing, and unsuccessful attempts. While thoughts about suicide are common, most people do not carry out serious actions to commit suicide. Based upon your evaluation and discussion with you, we do not believe you are currently at risk to act upon your thoughts of suicide. You have agreed to return to the Emergency Department, at any time , if you feel inclined to act upon your suicidal thoughts. Cocaine Abuse Cocaine causes many dangerous medical problems. Problems can occur even with "usual" amounts. Cocaine affects judgement, creating a sense of invulnerability. Cocaine users often make bad decisions that seem "great" at the time. Most cocaine users eventually will be hurt by bad job performance, damaged personal relations, crime, and unsafe sexual practices. Toxic effects of cocaine can include seizures, hallucinations, delusions, high blood pressure, heart damage, or sudden . There's always the risk of a "bad batch." But heart attacks, brain hemorrhages, or cardiac arrest can occur unpredictably even with "normal" use. Injection of cocaine is risky for abscesses, endocarditis (heart infection) , pneumonia, and AIDS. Withdrawal from cocaine often causes anxiety and drug cravings. Some users become paranoid and psychotic. Many treatment programs are available, but you must make the decision to quit. Medication can be prescribed to control the symptoms of cocaine toxicity (beta blockers or benzodiazepines). Withdrawal symptoms may require tranquilizers. FOLLOW-UP CARE: You have identified you would like help with Cocaine Abuse and as the medical provider we agree detox then a Substance Abuse Intensive Outpatient Program ( SAIOP) would provide professional supports. [facility] conducted a phone interview with you and thinks they may have bed availability tomorrow. You will contact [facility] ([facility]) to also assist you with inpatient substance abuse placement. If you experience worsening or a significant change in your symptoms, notify the physician immediately or return to the Emergency Department at any time for re-evaluation. Referrals: [facility] [Provider Group] - 07/25/17 Scribe Attestation: 07/25/17 11:25 I personally performed the services described in the documentation, reviewed and edited the documentation which was dictated to the scribe in my presence, and it accurately records my words and actions. (LUIS KC) Scribe Documentation - Scribe Written by Lore:: lore Arechiga, 07/25/2017, 1022 acting as scribe for :: Yamini <CAT GAMBLE - Last Filed: 07/25/17 10:17>
[2017-07-25 10:45] LABS: ALANINE AMINOTRANSFERASE 20 U/L (9-52); ALBUMIN 4.4 g/dL (3.5-5.0); ALKALINE PHOSPHATASE 48 U/L (38-126); ANION GAP 14 (5-19); ASPARTATE AMINO TRANSFERASE 14 U/L (14-36); BILIRUBIN,DIRECT 0.3 mg/dL (0.0-0.4); BILIRUBIN,TOTAL 0.7 mg/dL (0.2-1.3); BLOOD UREA NITROGEN 9 mg/dL (7-20); CALCIUM 9.9 mg/dL (8.4-10.2); CARBON DIOXIDE 23 mmol/L (22-30); CHLORIDE 104 mmol/L (98-107); CREATININE RESULT 0.88 mg/dL (0.52-1.25); GLUCOSE 130 mg/dL (75-110); POTASSIUM 3.7 mmol/L (3.6-5.0); SODIUM 141.1 mmol/L (137-145); TOTAL PROTEIN 7.2 g/dL (6.3-8.2)
[2017-07-25 10:47] LABS: ALCOHOL < 10 mg/dL (NONE DETECTED)
[2017-07-25 10:53] LABS: URINE BARBITURATES SCREEN NEGATIVE; URINE METHADONE SCREEN NEGATIVE; URINE OPIATES LOW NEGATIVE; URINE PHENCYCLIDINE SCREEN NEGATIVE
[2017-07-25 14:50] VITALS: BP 113/74
--- NOTE | 2017-07-25 22:53 | EKG REPORT ---
SEVERITY:- ABNORMAL ECG - SINUS TACHYCARDIA BIATRIAL ABNORMALITIES BORDERLINE RIGHT AXIS DEVIATION INFERIOR Q WAVES, PROBABLY NORMAL VARIATION : Confirmed by: Mirela Penn 25-Jul-2017 22:51:47
== END 2017-07-25 14:45 | disposition home or self-care (01) ==
LOC: ER 09:24
DX: R45.851 Suicidal ideations (principal); F14.20 Cocaine dependence, uncomplicated; F32.9 Major depressive disorder, single episode, unspecified; F31.9 Bipolar disorder, unspecified; F17.210 Nicotine dependence, cigarettes, uncomplicated
CPT/HCPCS: 36415; 80053; 80307; 81001; 84443; 84703; 85025; 93005; 93010; 99285

== ENCOUNTER 2017-08-02 08:36 | Emergency (ER) | payer OTHER ==
--- NOTE | 2017-08-02 09:22 | ER Document Report ---
ED Medical Screen (RME) - General Chief Complaint: Suicidal Ideation Stated Complaint: SUICIDAL IDEATION Time Seen by Provider: 08/02/17 09:18 Notes: pt with depression/si due to multiple stressors TRAVEL OUTSIDE OF THE [place] IN LAST 30 DAYS: No - Related Data Allergies/Adverse Reactions: No Known Allergies Allergy (Verified 07/23/17 03:13) Past Medical History - Social History Chew tobacco use (# tins/day): No Frequency of alcohol use: None Drug Abuse: None Renal/ Medical History: Reports: Hx Pelvic Inflammatory Disease. Denies: Hx Peritoneal Dialysis Psychiatric Medical History: Reports: Hx Depression Past Surgical History: Reports: Hx Tubal Ligation - Immunizations Hx Diphtheria, Pertussis, Tetanus Vaccination: Yes - 2014 Physical Exam - Vital signs Vitals: Temp Pulse Resp BP Pulse Ox 97.4 F 101 H 20 132/91 H 100 08/02/17 08:51 08/02/17 08:51 08/02/17 08:51 08/02/17 08:51 08/02/17 08:51 Course - Vital Signs Vital signs: Temp Pulse Resp BP Pulse Ox 97.4 F 101 H 20 132/91 H 100 08/02/17 08:51 08/02/17 08:51 08/02/17 08:51 08/02/17 08:51 08/02/17 08:51
[2017-08-02 09:40] LABS: ABSOLUTE BASOPHILS # (AUTO) 0.1 10^3/uL (0.0-0.2); ABSOLUTE EOSINOPHILS # (AUTO) 0.6 10^3/uL (0.0-0.6); ABSOLUTE LYMPHOCYTES (AUTO) 1.8 10^3/uL (0.5-4.7); ABSOLUTE MONOCYTES (AUTO) 0.9 10^3/uL (0.1-1.4); ABSOLUTE NEUT (AUTO) 8.4 10^3/uL (1.7-8.2); BASOPHILS % (AUTO) 0.5 % (0-2); EOSINOPHILS % (AUTO) 4.9 % (0-6); HEMATOCRIT 44.2 % (36.0-47.0); HEMOGLOBIN 15.4 g/dL (12.0-15.5); LYMPHOCYTES % (AUTO) 15.4 % (13-45); MEAN CORPUSCULAR HEMOGLOBIN 30.7 pg (27.0-33.4); MEAN CORPUSCULAR HGB CONC 34.8 g/dL (32.0-36.0); MEAN CORPUSCULAR VOLUME 88 fl (80-97); MONOCYTES % (AUTO) 7.8 % (3-13); RED BLOOD COUNT 5.01 10^6/uL (3.72-5.28); RED CELL DISTRIBUTION WIDTH 13.4 % (11.5-14.0); SEGMENTED NEUTROPHILS % (AUTO) 71.4 % (42-78); WHITE BLOOD COUNT 11.7 10^3/uL (4.0-10.5)
[2017-08-02 09:50] LABS: APPEARANCE,URINE CLEAR; BILIRUBIN,URINE NEGATIVE (NEGATIVE); GLUCOSE, URINE NEGATIVE (NEGATIVE); KETONES,URINE NEGATIVE (NEGATIVE); LEUKOCYTE ESTERASE,URINE NEGATIVE (NEGATIVE); NITRITE,URINE NEGATIVE (NEGATIVE); PROTEIN,URINE NEGATIVE (NEGATIVE); URINE SPECIFIC GRAVITY 1.015
--- NOTE | 2017-08-02 09:53 | ER Document Report ---
ED Psych Disorder / Suicide <OJEDASHONA - Last Filed: 08/02/17 13:01> - General TRAVEL OUTSIDE OF THE [place] IN LAST 30 DAYS: No <LORI LAUGHLIN - Last Filed: 08/02/17 13:41> <CARISSA GOINS - Last Filed: 08/05/17 16:28> - General Chief Complaint: Suicidal Ideation Stated Complaint: SUICIDAL IDEATION Time Seen by Provider: 08/02/17 09:18 - HPI Notes: Patient was evaluated 8 days ago for passive suicidal ideation (no plan, means or intent) with no previous attempts and substance abuse (cocaine). After discharge, [facility] contacted Behavioral Health Team and stated that upon meeting with patient following discharge from [facility] services, patient provided information that was inconsistent with previously provided information to [facility] staff regarding SI, intent and plan. She reportedly advised that she now had a plan with intent, however advised [facility] that patient was felt to have secondary gain as it relates to superficially wanting treatment as required in an effort to reunite with children who are in out of state placement with family. Clinician contacted contacted by mobile washtub worker helper, Binta Joe [phone]. She disclosed the patient was brought to [facility] ED with concerns of suicidal ideation. She continued disclosed that they picked up the patient to transport her to [facility] for an appointment when she disclosed she was thinking of hurting herself and her plan was to cut her wrists. She continued disclosed the patient had "fresh cuts on her forearm" and requested to go to [facility] ED. she states the patient was quiet and withdrawn and declined to further engage or elaborate on recent events that contribute to onset of suicidal ideation and self-harm. Clinician conducted evaluation with patient: Patient disclosed that she wants to hurt herself and her plan is to cut her arm. Patient denies history of cutting. Clinician observed superficial cut on patient's forearm; no stitches or bandaging required. Patient disclosed that she was going to go to [facility] today however she came here instead. When asked the onset of why she wanted to hurt herself she stated "I do not remember why wanted to hurt myself;" however continue to confirm she still wanted to hurt herself. Patient had difficulty staying awake during evaluation. When clinician noted patient continually nodded off she stated "I cannot sleep." Patient disclosed she has been having difficulty sleeping for 1 month. Patient disclosed that she went to detox at the [facility] and just got out. She continued disclosed that she has auditory hallucinations however she does not recognize the voice. She states she hears about 4-5 voices in both male and female. When asked what the voices say patient disclosed "I do not know... Stuff like they tell me to stop doing what I am doing." Patient was semi-alert and oriented person, place, time and circumstance. Mood was congruent with trying to sleep i.e. flat affect and eyes closed. Patient endorses self harm with passive suicidal ideation. She denied HI and this was not a presenting concern. Behaviors congruent with intact reality based presentation (i.e. organized, linear, rational thinking). Patient is able to carry on conversation; However is noted to have difficulty staying awake. Eye contact was poor, she had the covers pulled up to her eyes and her eye were closed. Thought processes were linear and organized. Conversational speech was soft in tone (audible and understandable though) and rate and prosody were WNL. Intellectual abilities are estimated to be average. Attention and concentration were fair. Insight, judgment, impulse control are fair. Diagnosis: 304.20 (14.20) Cocaine Use Disorder, Severe R/O 311 (F31.9) Unspecified Depressive Disorder (unsure how much is related to Cocaine use, coming down, withdrawal) Impression/Plan: Patient is psychiatrically cleared for discharge. Patient does not meet IVC criteria per [place] GS 122C. Patient discloses substance abuse ( cocaine); toxicology reports support patient's disclosure. Patient was just discharged from the [facility] for detox. Patient is recommended for outpatient treatment for substance abuse. It is noted patient is homeless and has a possible secondary gain of superficially wanting treatment as required an effort to reunite with her children who are in [id number] placement with her family. Consulted with Dr. Goins regarding the management and care of patient. ED Physician in agreement with recommendation. (SHONA OJEDA) 32-year-old female with history of cocaine abuse, recently detoxed off cocaine presents with a suicide attempt today with cutting right arm. She is actively suicidal with plan of cutting herself but cannot figure out "how to do it". She states she really did not have to detox she just needs to quit using cocaine and cannot seem to do it. She has multiple stressors she relates mostly to her family. She denies any physical complaints. No chest pain breathing difficulty no fever. Denies ingestion or other attempt otherwise. ( LORI LAUGHLIN) Patient was psychiatrically cleared for discharge and did not meet IVC criteria secondary to Patient's presentation being inconsistent with the initial medical lab tech instructor and with mobile washtub worker helper. She continues to actively use cocaine despite inpatient substance abuse treatment and cannot verbalize a formidable plan despite eluding to such. She has secondary gain without true intent for sobriety and when given another opportunity towards sobriety, she actively sabotaged the opportunity, thus demonstrating her lack of true intent to remain substance free. Patient is provided resources in the community for ongoing cre and treatment and is felt to be low risk for suicide given her lack of commitment to treatment. (CARISSA GOINS) - Related Data Allergies/Adverse Reactions: No Known Allergies Allergy (Verified 07/23/17 03:13) Past Medical History - General Information source: Patient - Social History Smoking Status: Current Every Day Smoker Chew tobacco use (# tins/day): No Frequency of alcohol use: None Drug Abuse: None Family History: DM, Hyperlipidemia, Hypertension Patient has suicidal ideation: Yes Patient has homicidal ideation: No Renal/ Medical History: Reports: Hx Pelvic Inflammatory Disease. Denies: Hx Peritoneal Dialysis Psychiatric Medical History: Reports: Hx Depression Past Surgical History: Reports: Hx Tubal Ligation - Immunizations Hx Diphtheria, Pertussis, Tetanus Vaccination: Yes - 2014 <LORI LAUGHLIN - Last Filed: 08/02/17 13:41> Review of Systems - Review of Systems -: Yes All other systems reviewed and negative <LORI LAUGHLIN - Last Filed: 08/02/17 13:41> Physical Exam <SHONA OJEDA - Last Filed: 08/02/17 13:01> <LORI LAUGHLIN - Last Filed: 08/02/17 13:41> <CARISSA GOINS - Last Filed: 08/05/17 16:28> - Vital signs Vitals: Temp Pulse Resp BP Pulse Ox 97.4 F 101 H 20 132/91 H 100 08/02/17 08:51 08/02/17 08:51 08/02/17 08:51 08/02/17 08:51 08/02/17 08:51 - Notes Notes: GENERAL: VS as per nursing doc. Very thin female no distress noted. HEAD: Atraumatic, normocephalic EYES: Pupils equal round and reactive to light, extraocular movements intact, sclera anicteric, mild palpebral conjunctival injection but no discharge. ENT: Nares patent, oropharynx clear without exudates, moist mucous membranes. NECK: Normal range of motion, supple without lymphadenopathy. LUNGS: Breath sounds clear to auscultation bilaterally and equal. No wheezes rales or rhonchi. HEART: Regular rate and rhythm without murmurs. Peripheral pulses equal. ABDOMEN: Soft, non-tender. BACK: Normal to inspection EXTREMITIES: Normal appearance without edema. NEUROLOGICAL: Cranial nerves grossly intact. Normal speech. Normal sensory and motor exams. No gross cerebellar abnormalities. PSYCH: Oriented 3. Calm, directable. No evidence of hallucinations or delusions. Reports suicidal ideation with plan of cutting but no homicidal ideation. Normal thought content. Poor eye contact, speech is fairly flat. Speech is appropriate. SKIN: Warm, dry. Multiple very superficial lacerations to the dorsum and radial side of the right forearm. (LORI LAUGHLIN) Course - Laboratory Result Diagrams: 08/02/17 09:31 08/02/17 09:31 <SHONA OJEDA - Last Filed: 08/02/17 13:01> - Laboratory Result Diagrams: 08/02/17 09:31 08/02/17 09:31 <LORI LAUGHLIN - Last Filed: 08/02/17 13:41> - Laboratory Result Diagrams: 08/02/17 09:31 08/02/17 09:31 <CARISSA GOINS - Last Filed: 08/05/17 16:28> - Re-evaluation Re-evalutation: 08/02/17 09:53 Patient is actively suicidal with plan and gesture this morning so she will be placed as an IVC for further psychiatric evaluation. 08/02/17 12:17 Patient has been seen by psychiatry. She has been aloof with suicidal ideation. Obviously did not make a significant attempt with the multitude of superficial lacerations. I spoke with Dr. Goins in they felt this was all regarding secondary gain as she was supposed to go [place] ordered [place] today and would probably test positive for cocaine. They recommend discharge at this point. (LORI LAUGHLIN) - Vital Signs Vital signs: Temp Pulse Resp BP Pulse Ox 97.8 F 76 20 126/78 H 100 08/02/17 14:32 08/02/17 14:32 08/02/17 14:32 08/02/17 14:32 08/02/17 14:32 - Laboratory Laboratory results interpreted by me: 08/02/17 08/02/17 08/02/17 09:31 09:31 09:31 WBC 11.7 H Absolute Neutrophils 8.4 H Urine Urobilinogen 2.0 H Salicylates < 1.0 L Acetaminophen < 10 L Discharge <SHONA OJEDA - Last Filed: 08/02/17 13:01> <LORI LAUGHLIN - Last Filed: 08/02/17 13:41> <CRAISSA GOINS - Last Filed: 08/05/17 16:28> - Discharge Clinical Impression: Cocaine abuse, Homelessness Major depressive disorder, single episode, unspecified Qualifiers: Active/Remission status: currently active Major depression episode severity: unspecified Qualified Code(s): F32.9 - Major depressive disorder, single episode , unspecified Condition: Stable Disposition: HOME, SELF-CARE Additional Instructions: COCAINE ABUSE: Cocaine causes many dangerous medical problems. Problems can occur even with "usual" amounts. Cocaine affects judgement, creating a sense of invulnerability. Cocaine users often make bad decisions that seem "great" at the time. Most cocaine users eventually will be hurt by bad job performance, damaged personal relations, crime, and unsafe sexual practices. Toxic effects of cocaine can include seizures, hallucinations, delusions, high blood pressure, heart damage, or sudden . There's always the risk of a "bad batch." But heart attacks, brain hemorrhages, or cardiac arrest can occur unpredictably even with "normal" use. Injection of cocaine is risky for abscesses, endocarditis (heart infection) , pneumonia, and AIDS. Withdrawal from cocaine often causes anxiety and drug cravings. Some users become paranoid and psychotic. Many treatment programs are available, but you must make the decision to quit. Medication can be prescribed to control the symptoms of cocaine toxicity (beta blockers or benzodiazepines). Withdrawal symptoms may require tranquilizers. FOLLOW-UP CARE: Please follow up with [facility] for your substance abuse and mental health services upon discharge. If you experience worsening or a significant change in your symptoms, notify the physician immediately or return to the Emergency Department at any time for re-evaluation. Referrals: [facility] [Outside] - 08/02/17
[2017-08-02 09:57] LABS: ALANINE AMINOTRANSFERASE 16 U/L (9-52); ALBUMIN 4.4 g/dL (3.5-5.0); ALKALINE PHOSPHATASE 51 U/L (38-126); ANION GAP 11 (5-19); ASPARTATE AMINO TRANSFERASE 15 U/L (14-36); BILIRUBIN,DIRECT 0.3 mg/dL (0.0-0.4); BILIRUBIN,TOTAL 1.1 mg/dL (0.2-1.3); BLOOD UREA NITROGEN 8 mg/dL (7-20); CARBON DIOXIDE 25 mmol/L (22-30); CHLORIDE 105 mmol/L (98-107); CREATININE RESULT 0.78 mg/dL (0.52-1.25); GLUCOSE 107 mg/dL (75-110); POTASSIUM 3.6 mmol/L (3.6-5.0); SODIUM 141.4 mmol/L (137-145); TOTAL PROTEIN 7.4 g/dL (6.3-8.2)
[2017-08-02 09:58] LABS: ALCOHOL < 10 mg/dL (NONE DETECTED)
[2017-08-02 10:04] LABS: URINE BARBITURATES SCREEN NEGATIVE; URINE METHADONE SCREEN NEGATIVE; URINE OPIATES LOW NEGATIVE; URINE PHENCYCLIDINE SCREEN NEGATIVE
--- NOTE | 2017-08-02 12:43 | EKG REPORT ---
SEVERITY:- BORDERLINE ECG - SINUS RHYTHM PROBABLE LEFT ATRIAL ABNORMALITY BORDERLINE RIGHT AXIS DEVIATION NONSPECIFIC ST-T CHANGES- INFERIOR LEADS : Confirmed by: Tomás Dimas MD 02-Aug-2017 12:42:37
[2017-08-02 14:34] VITALS: BP 126/78
== END 2017-08-02 14:34 | disposition home or self-care (01) ==
LOC: ER 08:36
DX: F14.10 Cocaine abuse, uncomplicated (principal); S51.811A Laceration without foreign body of right forearm, initial encounter; X78.1XXA Intentional self-harm by knife, initial encounter; F32.9 Major depressive disorder, single episode, unspecified; Z59.0 Homelessness; F17.200 Nicotine dependence, unspecified, uncomplicated
CPT/HCPCS: 36415; 80053; 80307; 81001; 81025; 85025; 93005; 93010; 99285

== ENCOUNTER 2017-08-25 21:19 | Emergency (ER) | payer OTHER ==
[2017-08-25 21:28] VITALS: BP 142/95
== END 2017-08-25 22:50 | disposition left against medical advice (07) ==
LOC: ER 21:19
DX: Z53.21 Procedure and treatment not carried out due to patient leaving prior to being seen by health care provider (principal)

== ENCOUNTER 2017-09-02 20:46 | Emergency (ER) | payer SELFPAY ==
[2017-09-02 21:42] VITALS: BP 103/69
--- NOTE | 2017-09-02 22:24 | ER Document Report ---
HPI - HPI Pain Level: 5 Notes: Patient is a 32-year-old female who presents the ED complaining of burning with urination, frequency, urgency, voiding small amounts 1 day. Patient states that she has been drinking lots of water, but has been urinating constantly. She has not had any vaginal or urethral discharge that she is aware of. Patient states that she is still having normal bowel movements in eating normally otherwise. Denies any drug allergies. Denies any headache, fever, neck pain, URI, sore throat, chest pain, palpitations, syncope, cough, shortness of breath, wheeze, dyspnea, abdominal pain, nausea/vomiting/diarrhea, urinary retention, hematuria, loss of control of bowel or bladder, or rash. - ROS Notes: REVIEW OF SYSTEMS: CONSTITUTIONAL : Denies fever, chills, or sweats. Denies recent illness. EENT: Denies eye, ear, throat, or mouth pain or symptoms. Denies nasal or sinus congestion or discharge. Denies throat, tongue, or mouth swelling or difficulty swallowing. CARDIOVASCULAR: Denies chest pain. Denies palpitations or racing or irregular heart beat. Denies ankle edema. RESPIRATORY: Denies cough, cold, or chest congestion. Denies shortness of breath, difficulty breathing, or wheezing. GASTROINTESTINAL: Denies abdominal pain or distention. Denies nausea, vomiting , or diarrhea. Denies blood in vomitus, stools, or per rectum. Denies black, tarry stools. Denies constipation. GENITOURINARY: see hpi MUSCULOSKELETAL: Denies back or neck pain or stiffness. Denies joint pain or swelling. SKIN: Denies rash, lesions or sores. NEUROLOGICAL: Denies confusion or altered mental status. Denies passing out or loss of consciousness. Denies dizziness or lightheadedness. Denies headache. Denies weakness or paralysis or loss of use of either side. Denies problems with gait or speech. Denies sensory loss, numbness, or tingling. ALL OTHER SYSTEMS REVIEWED AND NEGATIVE. Dictation was performed using [employer] voice recognition software - REPRODUCTIVE Reproductive: DENIES: : - DERM Skin Color: Normal Past Medical History - Social History Smoking Status: Unknown if Ever Smoked Family History: DM, Hyperlipidemia, Hypertension Patient has suicidal ideation: No Patient has homicidal ideation: No Renal/ Medical History: Reports: Hx Pelvic Inflammatory Disease. Denies: Hx Peritoneal Dialysis Psychiatric Medical History: Reports: Hx Depression Past Surgical History: Reports: Hx Tubal Ligation - Immunizations Hx Diphtheria, Pertussis, Tetanus Vaccination: Yes - 2015 [facility] Provider Document - CONSTITUTIONAL Agree With Documented VS: Yes Notes: PHYSICAL EXAMINATION: GENERAL: Well-appearing, well-nourished and in no acute distress. A&Ox4 LUNGS: Breath sounds clear to auscultation bilaterally and equal. No wheezes rales or rhonchi. HEART: Regular rate and rhythm without murmurs, rubs, gallops. ABDOMEN: Soft, nontender, nondistended abdomen. No guarding, no rebound. No masses appreciated. Normal bowel sounds present. No CVA tenderness bilaterally. Extremities: No CCE b/l NEUROLOGICAL: Normal speech, normal gait. Normal sensory, motor exams PSYCH: Normal mood, normal affect. SKIN: Warm, Dry, normal turgor, no rashes or lesions noted. - INFECTION CONTROL TRAVEL OUTSIDE OF THE [place] IN LAST 30 DAYS: No - RESPIRATORY O2 Sat by Pulse Oximetry: 97 Course - Re-evaluation Re-evalutation: 09/02/17 23:06 Patient is an afebrile, well-hydrated, 32-year-old female who presents the ED with dysuria. Vitals are stable. PE is otherwise unremarkable. We had to do a urinary catheter to try to obtain enough urine for testing, but we are unable to get out very small amount. Urinalysis was unremarkable with a urine culture pending. advised patient that she needs to increase her water intake. Conservative measures for symptoms. recheck with your PCM in 2-3 days. Return to the ED with any worsening/concerning symptoms otherwise as reviewed in discharge. Patient is in agreement. - Vital Signs Vital signs: Temp Pulse Resp BP Pulse Ox 98.5 F 95 18 103/69 97 09/02/17 21:38 09/02/17 21:38 09/02/17 21:38 09/02/17 21:38 09/02/17 21:38 Discharge - Discharge Clinical Impression: Dysuria Condition: Stable Disposition: HOME, SELF-CARE Additional Instructions: Push fluids (i.e. water, cranberry juice) Proper hygenic technique Keep the skin clean Tylenol/ibuprofen as needed May use over the counter AZO for burning with urination F/u with your PCM in 2-3 days for a recheck Consider consult with a Urologist for ongoing/worsening symptoms. Return to the ED with any worsening symptoms and/or development of fever, headache, chest pain, palpitations, syncope, shortness of breath, trouble breathing, abdominal pain, n/v/d, blood in stool/urine, loss of control of bowel /bladder, urinary retention, or other worsening symptoms that are concerning to you. Referrals: [facility] [Provider Group] - Follow up as needed
[2017-09-02 23:00] LABS: APPEARANCE,URINE SLIGHTLY-CLOUDY; BILIRUBIN,URINE NEGATIVE (NEGATIVE); GLUCOSE, URINE NEGATIVE (NEGATIVE); KETONES,URINE NEGATIVE (NEGATIVE); LEUKOCYTE ESTERASE,URINE TRACE (NEGATIVE); NITRITE,URINE NEGATIVE (NEGATIVE); PROTEIN,URINE NEGATIVE (NEGATIVE); URINE SPECIFIC GRAVITY 1.032
== END 2017-09-02 23:13 | disposition home or self-care (01) ==
LOC: ER 20:46
DX: R30.0 Dysuria (principal); R35.0 Frequency of micturition; R39.15 Urgency of urination
CPT/HCPCS: 81001; 87086; 99283